=== PATIENT | male | born 1960 | race Two or more races ===

== ENCOUNTER → 2017-10-02 | Day surgery (SDC) | payer MEDICARE, OTHER ==
[~2017-10-02] MED LIST: HYDROmorphone 2 MG/ML VIAL IV; LIDOCAINE 1% PF 2 ML VIAL. ID; LIDOCAINE 2% 100 MG/5 ML SYRINGE.; MORPHINE SULFATE 4 MG/ML DISP.SYRIN. IV; ONDANSETRON PF 4 MG/2 ML VIAL. IV; PROCHLORPERAZINE 10 MG/2 ML VIAL. IV; PROPOFOL 20 ML IV; PROPOFOL 40 ML IV; fentaNYL PF VIAL 100 MCG/2 ML VIAL IV
[2017-10-02] MEDS: IV RINGERS,LACTATED 1000ML 1,000 ML IV (09:45)
== END | disposition home or self-care (01) ==
LOC: ENDOS 09:18
DX: K64.0 First degree hemorrhoids (principal); K21.0 Gastro-esophageal reflux disease with esophagitis; K29.50 Unspecified chronic gastritis without bleeding; I10 Essential (primary) hypertension; Z87.891 Personal history of nicotine dependence; Z98.890 Other specified postprocedural states; F41.9 Anxiety disorder, unspecified; F32.9 Major depressive disorder, single episode, unspecified; Z72.89 Other problems related to lifestyle; Z79.899 Other long term (current) drug therapy
CPT/HCPCS: 43239; 88305; 88342; J2704

== ENCOUNTER → 2017-10-20 | Outpatient (CLI) | payer MEDICARE ==
[~2017-10-20] MED LIST changes: +BARIUM SULFATE 340 GM SUSPENSION. PO; -HYDROmorphone 2 MG/ML VIAL IV; -LIDOCAINE 1% PF 2 ML VIAL. ID; -LIDOCAINE 2% 100 MG/5 ML SYRINGE.; -MORPHINE SULFATE 4 MG/ML DISP.SYRIN. IV; -ONDANSETRON PF 4 MG/2 ML VIAL. IV; -PROCHLORPERAZINE 10 MG/2 ML VIAL. IV; -PROPOFOL 20 ML IV; -PROPOFOL 40 ML IV; +SIMETHICONE/SOD BICARB/CITRIC ACID PACKET. PO; -fentaNYL PF VIAL 100 MCG/2 ML VIAL IV
[2017-10-20] MEDS: SINCALIDE 1.5 MCG in IV NORMAL SALINE 50ML 30 ML IV (08:48)
[2017-10-20] MEDS: BARIUM SULFATE 60% 355 ML SUSP PO (11:14)
== END | disposition home or self-care (01) ==
LOC: RAD 07:26
DX: K21.9 Gastro-esophageal reflux disease without esophagitis (principal); I10 Essential (primary) hypertension; R05 Cough; Z87.891 Personal history of nicotine dependence
CPT/HCPCS: 74220; 78226; 96374; 96375; A9537; J2805